=== PATIENT | female | born 1975 | race Caucasian/White ===

== ENCOUNTER → 2021-07-25 | Outpatient (CLI) | payer OTHER ==
--- NOTE | 2021-07-25 09:24 | KCIC ---
EXAM: Pelvic sonogram. HISTORY: Excessive menstruation. Irregular cycle. TECHNIQUE: Sonographic imaging of the pelvis was performed. COMPARISON: None. FINDINGS: The uterus measures 10.1 x 5.7 x 4.7 cm. The endometrial stripe measures 9 mm. The ovaries are normal in size and demonstrate normal blood flow. There is a 2.0 x 1.5 x 1.3 cm complicated left ovarian cyst with suspected internal septation. The bladder is unremarkable. There is no pelvic free fluid. IMPRESSION: 1. 2.0 cm left ovarian cyst with suspected internal septation. 2. Otherwise, unremarkable pelvic sonogram. Electronically signed by: Nanda Zarate MD (07/25/2021 9:22 AM) [id number]
== END ==
LOC: KCIC US 07:53
PROVIDERS: ATTEND Physician Assistant
DX: N83.292 Other ovarian cyst, left side (principal); N92.0 Excessive and frequent menstruation with regular cycle
CPT/HCPCS: 76856